=== PATIENT | male | born 1975 ===

== ENCOUNTER → 2020-04-18 | Outpatient (REF) | payer OTHER ==
[2020-04-18 12:01] LABS: SEMEN APPEARANCE OPAQUE (OPAQUE); SEMEN VISCOSITY LIQUID (LIQUID); SEMEN VOLUME 4.5 ml (2.0-5.0); SEMEN pH 7.5 (7.0-8.0); WBC CONCENTRATION <=1 M/ml (<=1 M/ml)
== END ==
LOC: M LAB REF 11:43
DX: Z98.52 Vasectomy status (principal)